=== PATIENT | male | born 1960 | race Hispanic/Latino ===

== ENCOUNTER 2016-11-08 06:22 | Day surgery (SDC) | payer OTHER ==
[2016-11-06 10:28] VITALS: BMI 32.4
[2016-11-08 06:52] LABS: ADD MANUAL DIFF? NO
[2016-11-08 06:58] LABS: BASO # 0.06 K/mm3 (0.0-2.0); BASO % 0.7 % (0.0-3.0); EOS # 0.3 (0.0-0.7); EOS % 3.4 % (1.5-5.0); GRAN % 61.5 % (50.0-68.0); LYMPH # 2.1 (1.2-3.4); LYMPH % 24.9 % (22.0-35.0); MEAN CELL VOLUME 87.9 fL (80.0-105.0); MEAN CORPUSCULAR HEMOGLOBIN 30.1 pg (25.0-35.0); MEAN CORPUSCULAR HGB CONC 34.3 g/dl (31.0-37.0); MEAN PLATELET VOLUME 10.6 fl (7.0-11.0); MONO # 0.8 (0.1-0.6); MONO % 9.5 % (1.0-6.0); PLATELET COUNT 265 10^3/uL (120.0-450.0); RED CELL DISTRIBUTION WIDTH 12.9 % (11.5-14.5); WHITE BLOOD COUNT 8.6 10^3/ul (4.5-11.0)
[2016-11-08 07:10] LABS: INR 0.99 (0.93-1.08); PARTIAL THROMBOPLASTIN TIME 36.9 Seconds (23.7-30.8)
[2016-11-08 07:17] LABS: BLOOD UREA NITROGEN 14 mg/dL (7-21); CALCIUM 9.9 mg/dL (8.4-10.5); CARBON DIOXIDE 28 mmol/L (21-33); CHLORIDE 102 mmol/L (98-107); GFR AFRICAN-AMERICAN > 60; GLUCOSE,RANDOM 88 mg/dL (70-110); POTASSIUM 4.1 mmol/L (3.6-5.0); SODIUM 140 mmol/L (132-148)
[2016-11-08] MEDS ORDERED: Lidocaine 2% Inj (20ml) ONE (07:18)
[2016-11-08] MEDS ORDERED: Midazolam 2 MG/2 ML VIAL ONE ×2 (07:30→07:43)
[2016-11-08] MEDS ORDERED: Iohexol 350 MG/100 ML VIAL ONE (08:03)
[2016-11-08] MEDS ORDERED: Sodium Chloride 0.9% 1,000 ML IV SCH (08:45)
--- NOTE | 2016-11-08 09:11 | CARDCATH ---
PROCEDURE DATE: 11/08/2016 HISTORY: The patient is a 56-year-old male with a history of excessive smoking and a strong family h istory for CAD who presents with a markedly abnormal stress test. Cardiac catheterization was recommended. PROCEDURE: Left heart catheterization with coronary angiography and left ventriculogram. The right femoral artery was cannulated with a 6-Azeri sheath. There were no complications. Findings on catheterization revealed a left ventricle that revealed an inferobasal hypokinetic area. The rest of myocardium contracted well. Estimated ejection fraction is between 50% and 55%. His coronary anatomy revealed a right dominant circulation. The RCA was occluded in its midportion. The left main artery was free of critical lesions. The LAD was occluded in its proximal portion. There is a large diagonal vessel which revealed diffuse atherosclerosis without critical lesions. The circumflex artery revealed a 90% stenosis in the midportion of the obtuse marginal branch. The r est of the circumflex system revealed diffuse intimal irregularities without critical lesions. Angio-Seal was used to close the femoral artery site. The patient tolerated the procedure well. IN SUMMARY: The procedure revealed: 1. Severe triple vessel coronary artery disease. 2. Mild inferobasal hypokinesis with preserved left ventricular ejection fraction. Given these findings, the patient will need coronary artery bypass surgery. I have discussed this wi th the patient as well as his by telephone. I have called Dr. Elizalde at [facility] to arrange for coronary artery bypass surgery. Sulemian Ibrahim MD cc: [phone] TT: 11/08/2016 09:10:26 nc
[2016-11-08 13:51] VITALS: O2SAT 95
[2016-11-08 14:34] VITALS: BP 127/70; PULSE 66; RESP 20; TEMP 98
== END 2016-11-08 14:45 | disposition home or self-care (01) ==
LOC: CATH 06:22
PROVIDERS: ATTEND Internal Medicine Cardiovascular Disease
DX: I25.10 Atherosclerotic heart disease of native coronary artery without angina pectoris (principal); J44.9 Chronic obstructive pulmonary disease, unspecified; Z82.49 Family history of ischemic heart disease and other diseases of the circulatory system
CPT/HCPCS: 36415; 80048; 85025; 85610; 85730; 86850; 86900; 93458; 99152; C1760; C1769; C2629; J1644; J2250; J3010; J7040 ×2; Q9967 ×2

== ENCOUNTER 2018-09-25 06:27 | Day surgery (SDC) | payer OTHER | END 2018-09-26 14:06 | disposition home or self-care (01) | LOC: CATH 09-26 14:06 → ED 06:27 → NEURO 08:15 → 2RSO 09:54 → NEURO 09:54 → 2RSO 09:54 | DX: I25.119 Atherosclerotic heart disease of native coronary artery with unspecified angina pectoris (principal); I10 Essential (primary) hypertension; Z87.891 Personal history of nicotine dependence; Z95.1 Presence of aortocoronary bypass graft; Z82.49 Family history of ischemic heart disease and other diseases of the circulatory system ==

== ENCOUNTER 2018-10-09 17:24 | Observation (INO) | payer OTHER ==
[2018-10-09 17:33] VITALS: BMI 33.3
[2018-10-09 18:52] LABS: BASO # 0.05 K/mm3 (0.0-2.0); BASO % 0.7 % (0.0-3.0); EOS # 0.3 (0.0-0.7); HEMOGLOBIN 12.4 g/dL (14.0-18.0); LYMPH # 1.2 (1.2-3.4); LYMPH % 17.8 % (22.0-35.0); MEAN CELL VOLUME 89.4 fl (80.0-105.0); MEAN CORPUSCULAR HEMOGLOBIN 29.1 pg (25.0-35.0); MEAN CORPUSCULAR HGB CONC 32.5 g/dl (31.0-37.0); MEAN PLATELET VOLUME 10.6 fl (7.0-11.0); MONO % 14.3 % (1.0-6.0); RBC 4.26 10^6/uL (3.5-6.1); RED CELL DISTRIBUTION WIDTH 12.6 % (11.5-14.5); WHITE BLOOD COUNT 6.7 10^3/uL (4.5-11.0)
[2018-10-09 19:07] LABS: INR 1.18; PARTIAL THROMBOPLASTIN TIME 31.3 Seconds (26.9-38.3); PROTHROMBIN TIME 13.1 SECONDS (9.4-12.5)
--- NOTE | 2018-10-09 19:15 | ED PDOC ---
Arrival/HPI - General Chief Complaint: Chest Pain Time Seen by Provider: 10/09/18 17:54 Historian: Patient - History of Present Illness Narrative History of Present Illness (Text): 10/09/18 58 M with PMHx of hypertension, angina, CABG, open heart surgery, cholesterolemia, CAD and cardiac cath, presents with cc of sharp intermittent chest pain for the past week. Patient reports getting cardiac stents placed recently in past 2 weeks. Patient notes the pain makes him wince, and is increased with deep breathing. at bedside notes slight voice change. Pt denies lifting anything heavy or any changes in sleep positions. Patient denies any recent injuries, back pain, leg pain, leg swelling, or any other complaints. PMD: Dr. Osuna Associate Agent Insurance Sales: Dr. Hughes Time/Duration: 1 week (Patient notes symptoms for past week ) Symptom Onset: Sudden Symptom Course: Unchanged Activities at Onset: Light Past Medical History - Provider Review Nursing Documentation Reviewed: Yes - Infectious Disease Hx of Infectious Diseases: None - Cardiac Hx Cardiac Disorders: Yes Hx Angina: Yes Hx Hypertension: Yes Hx Pacemaker: No Other/Comment: s/p cardiac cath with stent placement - Pulmonary Hx Respiratory Disorders: No - Neurological Hx Paralysis: No - Hematological/Oncological Hx Blood Transfusions: No - Musculoskeletal/Rheumatological Hx Musculoskeletal Disorders: No - Psychiatric Hx Emotional Abuse: No Hx Physical Abuse: No Hx Substance Use: No - Surgical History Hx Cardiac Catheterization: Yes Hx Coronary Artery Bypass Graft: Yes Hx Open Heart Surgery: Yes - Anesthesia Hx Anesthesia Reactions: No Hx Malignant Hyperthermia: No - Suicidal Assessment Feels Threatened In Home Enviroment: No Family/Social History - Physician Review Nursing Documentation Reviewed: Yes Family/Social History: No Known Family HX Smoking Status: Former Smoker Hx Alcohol Use: No Hx Substance Use: No Allergies/Home Meds Allergies/Adverse Reactions: Allergies No Known Allergies Allergy (Verified 10/09/18 20:05) Home Medications: Home Meds Medication Instructions Recorded Confirmed Aspirin [Aspirin Chewable] 81 mg PO DAILY 11/02/16 09/25/18 Fenofibrate [Tricor] 145 mg PO DAILY 11/02/16 09/25/18 Levothyroxine [Levoxyl] 0.15 mg PO DAILY 11/02/16 09/25/18 amLODIPine [Norvasc] 5 mg PO DAILY 11/02/16 09/25/18 Clopidogrel [Plavix] 75 mg PO DAILY 09/25/18 09/25/18 Metoprolol Tartrate [Lopressor] 12.5 mg PO DAILY 09/25/18 09/25/18 Rosuvastatin Calcium [Crestor] 20 mg PO DAILY 09/25/18 09/25/18 Review of Systems - Physician Review All systems were reviewed & negative as marked: Yes (All other systems negative except that noted in the HPI.) Physical Exam - Physical Exam Narrative Physical Exam (Text): Gen: VS reviewed, alert, well developed, well nourished, nontoxic, mild distress Eye: EOMI, PERRL Neck: no JVD, supple, no adenopathy CV: regular rate, regular rhythm, no rubs,no murmur, S1, S2 Pulm: no distress, clear to auscultation, no wheeze, no rhonchi, breath sounds equal, no rales Abd: soft, nontender, no guarding, no rebound, no rigidity Ext: no edema Skin: good color, no rash, no cyanosis Psych: responds appropriately to questions, normal affect Neuro: oriented x3, CN2-12 intact grossly, motor intact, sensation intact Vital Signs Reviewed: Yes Vital Signs Temp Pulse Resp BP Pulse Ox 10/09/18 17:39 98.2 F 75 18 115/80 98 Temperature: Afebrile Blood Pressure: Normal Pulse: Regular Respiratory Rate: Normal Appearance: Positive for: Well-Appearing, Non-Toxic Pain Distress: Mild Mental Status: Positive for: Alert and Oriented X 3 Medical Decision Making ED Course and Treatment: 10/09/18 17:30 Impression: 58 year old male who presents to the Emergency department for sharp intermittent chest pain for the past week Differential Diagnosis included but are not limited to: Plan: -- EKG -- Labs -- X-Ray of chest -- Reassess and disposition Prior Visits: Notes and results from previous visits were reviewed. Patient was last seen in the emergency department on 09/25/18 chest pain that occurred at 5:30 that morning. Patient was hospitalized in fair condition. Progress Notes: 10/10/18 18:53 patient was seen for left sided upper chest pain, recent cardiac stent placed by dr. hughes. patient saw pcp in the office and was sent to the ED. patient was found to have an elevated dimer and a CTA was done to rule out PE. case was endorsed to dr. go for CT follow up and final disposition. - Lab Interpretations Lab Results: PT 13.1 SECONDS (9.4-12.5) H 10/09/18 18:48 INR 1.18 10/09/18 18:48 APTT 31.3 Seconds (26.9-38.3) 10/09/18 18:48 D-Dimer, Quantitative 1685 ng/mlDDU (0-243) H 10/09/18 18:48 - RAD Interpretation Narrative RAD Interpretations (Text): 10/09/18 X-Ray of chest interpreted by me, shows: No focal infiltrate. No pneumothorax. No pleural effusion. Radiology Orders: 10/09/18 18:13 CHEST PORTABLE [RAD] Stat Mill Manager: ED Physician - EKG Interpretation EKG Interpretation (Text): 10/09/18 19:46 1734: nsr at 71 bpm, nml qrs, nml axis, no acute sttw abn Interpreted by ED Physician: Yes - Scribe Statement The provider has reviewed the documentation as recorded by the Scribe Jannet Mendez All medical record entries made by the Scribe were at my direction and personally dictated by me. I have reviewed the chart and agree that the record accurately reflects my personal performance of the history, physical exam, medical decision making, and the department course for this patient. I have also personally directed, reviewed, and agree with the discharge instructions and disposition. Disposition/Present on Arrival - Present on Arrival Any Indicators Present on Arrival: No History of DVT/PE: No History of Uncontrolled Diabetes: No Urinary Catheter: No History of Decub. Ulcer: No History Surgical Site Infection Following: None - Disposition Have Diagnosis and Disposition been Completed?: Yes Diagnosis: Chest pain, Pneumonia Disposition: HOSPITALIZED Disposition Time: 18:55 (not actual) Condition: STABLE
[2018-10-09 19:30] LABS: ALB/GLOB RATIO 1.3 (1.1-1.8); ALBUMIN 4.4 g/dL (3.0-4.8); ALT/SGPT 15 U/L (7-56); AST/SGOT 40 U/L (17-59); BLOOD UREA NITROGEN 25 mg/dL (7-21); CALCIUM 9.9 mg/dL (8.4-10.5); GFR NON-AFRICAN AMERICAN > 60
[2018-10-09] MEDS ORDERED: Iohexol 350 MG/100 ML VIAL ONE (19:38)
--- NOTE | 2018-10-09 21:13 | ED PDOC ---
Physical Exam Vital Signs Temp Pulse Resp BP Pulse Ox 10/09/18 20:58 77 18 135/80 95 10/09/18 17:39 98.2 F 75 18 115/80 98 Medical Decision Making ED Course and Treatment: 10/09/18 21:00 Case endorsed to me by Dr. Casiano. Patient has a past medical history of cardiac stents placed 2 weeks ago. Patient came in complaining of chest pain. Currently awaiting CT Angio Chest results. Patient at this time is resting comfortably. 10/09/2018 21:[address] IMPRESSION: 1. No identification of PE. 2. Small posterior left lower lobe pneumonic consolidation. 3. Small left pleural effusion. 4. A solitary enlarged right axillary lymph node is noted. Several non- enlarged anterior and middle mediastinal lymph nodes are present. 5. Status post CABG surgery. 6. Mild cardiomegaly with small pericardial effusion. 7. Mild hepatomegaly. 8. Cholelithiasis. Dictator: Wale Chacko MD 10/09/18 22:[address] Osuna, who agrees to place patient under observation and to be placed on antibiotics. Requests to page consults Dr. Viramontes and Dr. Ibrahim. - Lab Interpretations Lab Results: PT 13.1 SECONDS (9.4-12.5) H 10/09/18 18:48 INR 1.18 10/09/18 18:48 APTT 31.3 Seconds (26.9-38.3) 10/09/18 18:48 D-Dimer, Quantitative 1685 ng/mlDDU (0-243) H 10/09/18 18:48 Troponin I < 0.01 ng/mL 10/09/18 18:30 Total Bilirubin 0.4 mg/dL (0.2-1.3) 10/09/18 18:48 AST 40 U/L (17-59) 10/09/18 18:48 ALT 15 U/L (7-56) 10/09/18 18:48 Alkaline Phosphatase 54 U/L (38-126) 10/09/18 18:48 Total Protein 7.8 g/dL (5.8-8.3) 10/09/18 18:48 Albumin 4.4 g/dL (3.0-4.8) 10/09/18 18:48 Globulin 3.4 gm/dL 10/09/18 18:48 Albumin/Globulin Ratio 1.3 (1.1-1.8) 10/09/18 18:48 - RAD Interpretation Radiology Orders: 10/09/18 18:13 CHEST PORTABLE [RAD] Stat 10/09/18 19:27 ANGIO CHEST PE PROTOCOL [CT] Stat - Scribe Statement The provider has reviewed the documentation as recorded by the Montana Lopez Provider Scribe Attestation: All medical record entries made by the Rogeribkhushi were at my direction and personally dictated by me. I have reviewed the chart and agree that the record accurately reflects my personal performance of the history, physical exam, medical decision making, and the department course for this patient. I have also personally directed, reviewed, and agree with the discharge instructions and disposition. Disposition/Present on Arrival - Present on Arrival Any Indicators Present on Arrival: No History of DVT/PE: No History of Uncontrolled Diabetes: No Urinary Catheter: No History of Decub. Ulcer: No History Surgical Site Infection Following: None - Disposition Have Diagnosis and Disposition been Completed?: Yes Diagnosis: Chest pain, Pneumonia Disposition: HOSPITALIZED Disposition Time: 22:25 Patient Plan: Observation Patient Problems: Current Active Problems Problem Status Onset Chest pain Acute Pneumonia Acute Condition: STABLE Discharge Instructions (ExitCare): Chest Pain (ED) Forms: [facility] (Kinyarwanda)
[2018-10-09] MEDS ORDERED: cefTRIAXone 1 gm 1 GM/100 ML BAG IV STA (22:22)
[2018-10-09] MEDS ORDERED: Azithromycin 500MG/NS 250ml 500 MG/250 ML BAG IV STA (22:22)
[2018-10-10 01:02] VITALS: RESP 20
--- NOTE | 2018-10-10 08:24 | CARD ---
APPROVED REPORT Date of service: 10/09/2018 EKG Measurement Heart [id number] <Conclusion> Normal sinus rhythm Normal ECG
[2018-10-10 08:25] LABS: TROPONIN I 0.01 ng/mL
[2018-10-10 08:37] VITALS: BP 134/81; PULSE 70; TEMP 98.5; O2SAT 95
--- NOTE | 2018-10-10 09:11 | CT ---
Date of service: 10/09/2018 PROCEDURE: CT Chest with contrast (Pulmonary Angiogram) HISTORY: pulmonary embolism COMPARISON: None available. TECHNIQUE: Axial computed tomography images were obtained of the chest in the pulmonary arterial phase of enhancement. Coronal and sagittal reformatted images were created and reviewed. Intravenous contrast dose: Radiation dose: Total exam DLP = 532.7 mGy-cm. This CT exam was performed using one or more of the following dose reduction techniques: Automated exposure control, adjustment of the mA and/or kV according to patient size, and/or use of iterative reconstruction technique. FINDINGS: PULMONARY ARTERIES: Unremarkable. No pulmonary embolism. AORTA: No acute findings. No thoracic aortic aneurysm. No aortic atherosclerotic calcification or mural plaque present. LUNGS: Left lower lobe infiltrate. PLEURAL SPACES: Small to moderate size left pleural effusion. HEART: Unremarkable. No cardiomegaly. No significant pericardial effusion. LYMPH NODES: No lymphadenopathy. BONES, CHEST WALL: Unremarkable. No fracture or destructive lesion OTHER FINDINGS: Unremarkable. IMPRESSION: No pulmonary embolism. Left pleural effusion with left lower lobe infiltrate.
--- NOTE | 2018-10-10 09:35 | RAD ---
Date of service: 10/09/2018 HISTORY: chest pain COMPARISON: 09/25/2018 FINDINGS: LUNGS: No active pulmonary disease. PLEURA: No significant pleural effusion identified, no pneumothorax apparent. CARDIOVASCULAR: No aortic atherosclerotic calcification present. Normal cardiac size. No pulmonary vascular congestion. OSSEOUS STRUCTURES: Sternal wires VISUALIZED UPPER ABDOMEN: Normal. OTHER FINDINGS: None. IMPRESSION: No active disease.
--- NOTE | 2018-10-10 12:30 | PN ---
DATE: 10/10/2018 The patient signed out AMA this morning before I was able to see him in the morning. Suleiman Ibrahim MD
--- NOTE | 2018-10-10 18:41 | HP ---
DATE OF EXAM: 10/09/2018 HISTORY OF PRESENT ILLNESS: He was seen yesterday in the emergency room, for some reason my H and P did not stick, so we doing an H and P for yesterday's date, which I believe is 10/09/2018. He was in my office and I sent him to the emergency room and I saw him in the emergency room after the office. He was not feeling well and his chest and breathing just was not right, I could not make out what it was, so sent him to the emergency room. He is a 58-year-old white man, just was not feeling well, not breathing well, and felt something in his chest that could not reproduce it. PAST MEDICAL HISTORY: Hypertension, angina, CABG, open heart surgery, high cholesterol, coronary artery disease, and cardiac cath. He has intermittent chest pain. Also dyspnea on exertion. His was with him and he is not in his usual. 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 He has also had a lot of stress with his brother being taken off life support, his younger brother for similar health issues. FAMILY HISTORY: He has got a lot of heart disease in his family. SOCIAL HISTORY: He is a former smoker. No alcohol. No drugs. ALLERGIES: NO KNOWN DRUG ALLERGIES. MEDICATIONS: He is on aspirin, TriCor, Levoxyl, Norvasc, Plavix, Lopressor, and Crestor. REVIEW OF SYSTEMS: No acute vision or hearing changes. No sore throat. Not a chest pain, but the chest not feeling right breathing well like not a pressure, but cannot take a deep breath in and dyspnea on exertion, may be little cough, but not brining up anything. No abdominal pain. No nausea, vomiting, constipation, or diarrhea. Extremities are okay. He just looks off. PHYSICAL EXAMINATION: VITAL SIGNS: He has a 98.2 temperature, 75 pulse, 18 respiratory rate, 115/80 blood pressure, and 90% O2 sat on room air. GENERAL: He does not look himself. He looks off, looks fatigued, looks stressed, he is well-developed, well-nourished, may be little bit distressed. HEENT: Extraocular muscles are intact. Pupils equal and reactive to light and accommodation. NECK: No JVD. Neck is supple. No adenopathy. Thyroid midline. HEART: Regular rate. Normal S1 and S2. LUNGS: Decreased breath sounds. No wheezes, rhonchi, or rales heard. Decreased breath sounds that is all, cannot take a full deep breath. ABDOMEN: Soft and nontender. Positive bowel sounds. No guarding. No rebound. No CVA tenderness. EXTREMITIES: Have no edema. SKIN: Has good color. No apparent rashes or ulcers. NEUROLOGIC: He is alert and oriented x3, but a very flat affect today, very said. Cranial nerves II through XII grossly intact. GCS is 15. Alert and oriented x3. LABORATORY DATA: He had multiple tests done. CAT scan of the chest showed a small left pneumonia, which explains his feeling that he is having. He was on aspirin, Rocephin, and Zithromax. He has 139 sodium, potassium 4.3, BUN 25, creatinine 1.2, GFR is greater than 60, sugar is 84, calcium is 9.9, and total bili is 0.4. AST is 40, ALT is 59, and alk phos 54. Troponin I is less than 0.01. Total protein is 7.8. D-dimer is 1685. There is a 6.7 white count, 12.4 hemoglobin, 38.1 hematocrit with 347 platelets with a weird feeling has in his chest and elevated D-dimer, the CAT scan was done, we find a left lower lobe pneumonia. Awaiting for the final results of the CAT scan. He will be on Rocephin and Zithromax. Cardiopulmonary consults and I will watch him closely. Logan Osuna DO MTDMinisterio
--- NOTE | 2018-10-11 02:50 | DS ---
HISTORY OF PRESENT ILLNESS: He left against medical advice. He came in with dyspnea on exertion and shortness of breath We found to have a left lower lobe pneumonia on the CAT scan. We are waiting for the final result, we are making sure he does not have a pulmonary embolus. He has consulted Pulmonary and Cardio. PHYSICAL EXAMINATION: VITAL SIGNS: He has a 98.5 temp, 70 pulse, 134/81 blood pressure, 20 respiratory rate, and 95% O2 sat on room air. MEDICATIONS: He was on Rocephin, Zithromax, and aspirin. LABORATORY DATA: Labs were okay yesterday except for the 1685 d-dimer. The problem is he is on antibiotics for the pneumonia, waiting for the results of the CAT scan, but he is going to leave against medical advice despite concern of his lungs, but he tells me his brother has been taken off the life support today and he has to go. I will put him on Levaquin and Zithromax as outpatient. Hopefully, there would not be a pulmonary embolus in the CAT scan, if there is, he will be called to go back to the emergency room he went AMA. Logan Osuna DO MTDD
== END 2018-10-10 09:57 | disposition left against medical advice (07) ==
LOC: ED 17:24 → ERH 22:26 → 3RSO 10-10 00:23
PROVIDERS: ADMIT Family Medicine; ATTEND Family Medicine
DX: J18.1 Lobar pneumonia, unspecified organism (principal); I25.10 Atherosclerotic heart disease of native coronary artery without angina pectoris; I10 Essential (primary) hypertension; E78.00 Pure hypercholesterolemia, unspecified; K80.20 Calculus of gallbladder without cholecystitis without obstruction; Z82.49 Family history of ischemic heart disease and other diseases of the circulatory system; Z79.02 Long term (current) use of antithrombotics/antiplatelets; Z79.82 Long term (current) use of aspirin; Z87.891 Personal history of nicotine dependence; Z95.1 Presence of aortocoronary bypass graft; Z95.5 Presence of coronary angioplasty implant and graft
CPT/HCPCS: 36415; 71045; 71275; 80053; 82550; 83615; 84484; 85025; 85378; 85610; 85730; 87040; 93005; 96365; 96367; 99285; G0378; J0456; J0696; Q9967